=== PATIENT | male | born 1975 | race Caucasian/White ===

== ENCOUNTER 2016-06-28 09:36 | Emergency (ER) | payer OTHER ==
[~2016-06-28] VITALS: Ht 185.4 cm; Wt 172.4 kg
[~2016-06-28 09:36] MED LIST: CLINDAMYCIN HC150 MG PO; FLEXERIL10 MG PO; KEFLEX 500MG.500 MG PO; LORTAB 5/500 501 TAB PO; NOMEDS *
[2016-06-28] MEDS ORDERED: LISINOPRIL 20MG20 MG PO (09:48)
--- NOTE | 2016-06-28 09:53 | Emergency Room Report ---
History of Present Illness Time Seen by [id number] Presenting Problem in Triage Pt arrived:Walked Presenting Problem:PAIN IN THORACIC SPINE, UNKNOWN REASON. STARTED HURTING YESTERDAY AND HAS NOT DONE ANYTHING TO CAUSE IT, NO TRAUMA. NO NAUSEA, NO URINARY SYMPTOM Onset of symptoms date/time:/ or onset unknown for:MEDICAL HX UNKNOWN Treatment Prior to Arrival: bobby at 1999 last pm [employer] Provided by:SELF Sepsis Risk Assessment: Temp: 97.8 B/P: 128/68 MAP: 88 Pulse: 79 Resp: 18 Recent fever? N Clinical Suspician of Infection? N Mental Status: 1 - Regular (Normal Baseline) Sepsis Risk:Low Sepsis Risk Have you (or family members/close friends) recently traveled outside the [place]? N If Yes, where/when: Have you had exposure to infectious disease within the past month? N TB? Other? Specify: Comment The patient complains of low back pain for about 24 hours. 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 He complains of pain in his mid to upper midline lumbar spine area. No radiation, numbness, weakness, or bowel or bladder symptoms. He has had previous episodes where his back "goes out" like this, the last he remembers was 2010. No specific diagnoses. He took Aleve yesterday evening. He says it did not help. Pain is worse with movement and in the standing position. ALLERGIES Coded Allergies: No Known Drug Allergies (NKDA) (06/28/16) Home Medications Reported Medications LISINOPRIL (Lisinopril) 20 MG PO DAILY History Medical History General Angina: No NE: No Hypertension? Yes Hyperlipidemia? No CHF? No COPD? No Asthma? No CVA? No Seizures? No Diabetes? No GB Disease: No MRSA? No TB? No Cancer? No Immunization Hx Ped.Immunizations UTD No DT/Tetanus 08/29/09 Flu 2YRSorMore Pneumonia NEVER Surgical Hx Previous Surgery?Y Ear tubes Tonsils RIGHT ARM Social History Smoking Hx Smoker: Never Smoker Tobacco: No Alcohol Alcohol: Yes Additionial History Additional History Lumbar spine x-ray 2002 result reviewed, negative Review of Systems All Other Systems Reviewed and Negative Constitutional denies fever Gastrointestinal denies abdominal pain, denies vomiting Musculoskeletal back pain Psychiatric/Neurological denies numbness, denies weakness Physical Exam Vital Signs Vital Signs Date Time Temp Pulse Resp B/P Pulse O2 O2 Flow FiO2 Ox Delivery Rate 06/28 1010 77 20 122/74 98 06/28 1008 20 06/28 0943 97.8 79 18 128/68 97 06/28 0941 97.8 79 18 128/68 97 General Appearance high BMI, moves slowly when changing positions, pain with movement Respiratory Status No: respiratory distress. Cardiovascular normal peripheral pulses Gastrointestinal non tender, no pulsatile mass Back normal inspection, no CVA tenderness, no vertebral tenderness Neurologic alert, no motor/sensory deficits Medical Decision Making LABS/Meds/Orders Pt receiving controlled substance in ED? Yes Alverto was queried for this patient? No Reason not queried - unable to access Results/Orders Current Medication Orders Sig/Tarun Start time Last Medication Dose Route Stop Time Status Admin Oxycodone/ 0 .STK-MED ONE 06/28 1004 DC Acetaminophen PO Ibuprofen 0 .STK-MED ONE 06/28 1003 DC PO Ibuprofen 800 MG ONCE ONE 06/28 1000 DC 06/28 PO 06/28 1001 1008 Oxycodone/ 1 EACH ONCE ONE 06/28 1000 DC 06/28 Acetaminophen PO 06/28 1001 1008 Orders Procedure Date/time Status LUMBAR SPINE-2 TO 3 VIEWS 06/28 1001 Active XRAY/CT/US XRAY/CT/US XRAY L-spine Comment Interpreted by Carmelo Lozano MD. Negative for fracture, dislocation, or subluxation. Departure Departure Disposition DC Home or Self Care(routine) Clinical Impression Primary Impression: Low back pain Qualifiers: Chronicity: acute Back pain laterality: midline Sciatica presence: without sciatica Qualified Code: M54.5 - Low back pain Condition STABLE Additional Instructions Off work until Wednesday07/01/16. Additional instructions for BACK PAIN: See your physician as soon as possible for further evaluation. Return immediately if back pain becomes intolerable, or if fever, numbness or weakness of your legs, loss of control of your bowels or bladder. Discharge Counseling Counseled pt/family regarding diagnosis, test results, medications/RX, home care, follow up needs Prescriptions Current Visit Scripts OXYCODONE HCL/ACETAMINOPHEN (Percocet 5-325 MG Tablet) 1 TAB PO Q6HP PRN pain #10 TAB Ibuprofen (Ibuprofen 800MG) 800 MG PO Q8HP PRN pain #15 TAB ED Critical Care Critical Care No
--- OUTSIDE RECORDS SUMMARY | 2016-06-28 10:06 | External Medical Summary Rpt ---
Author Author , Organization [employer] Address Unknown Phone Unavailable Purpose Continuity of Care Document - through 2016
--- OUTSIDE RECORDS SUMMARY | 2016-06-28 10:07 | External Medical Summary Rpt ---
Author Author KEVEN Shen, KEVEN Shen Organization [employer] Address Unknown Phone Unavailable
--- OUTSIDE RECORDS SUMMARY | 2016-06-28 10:07 | External Medical Summary Rpt ---
Demographics Preferred Language Liberian Marital Status Unknown Jain Affiliation Unknown Race Unknown Ethnic Group Unknown Author Author , Organization [employer] Address Unknown Phone Unavailable Purpose Continuity of Care Document - through 2016 Immunization No patient found.
--- OUTSIDE RECORDS SUMMARY | 2016-06-28 10:07 | External Medical Summary Rpt ---
Demographics Preferred Language Martiniquais Marital Status Unknown Presybeterian Affiliation Unknown Race Unknown Ethnic Group Unknown Author Author , Organization [employer] Address Unknown Phone Unavailable Purpose Continuity of Care Document - through 2016 Immunization No patient found.
[2016-06-28] MEDS ORDERED: IBUPROFEN800 MG PO (10:37)
[2016-06-28] MEDS ORDERED: PERCOCET1 TAB PO (10:37)
[2016-06-28 10:47] VITALS: BP 138/77
--- NOTE | 2016-06-28 13:59 | RADIOLOGY REPORT PS360 ---
LUMBAR SPINE-2 TO 3 VIEWS COMPARISON: None HISTORY: Back pain TECHNIQUE: AP and lateral views and spot view lumbosacral junction FINDINGS: There is normal curvature and alignment. All lumbar vertebrae appear intact and disc spaces are well maintained throughout. The SI joints appear normal. IMPRESSION: Negative lumbar spine
== END 2016-06-28 10:45 | disposition home or self-care (01) ==
LOC: ER 09:36
DX: M54.5 Low back pain (principal); I10 Essential (primary) hypertension

== ENCOUNTER → 2016-07-01 | Outpatient (CLI) | payer OTHER ==
[~2016-07-01] MED LIST changes: +IBUPROFEN800 MG PO; +LISINOPRIL 20MG20 MG PO; +PERCOCET1 TAB PO
--- NOTE | 2016-07-01 12:11 | RADIOLOGY REPORT PS360 ---
KNEE-3 VIEWS-LT HISTORY: LEFT KNEE PAIN ORDERING PHYSICIAN: GIO ARIAS APRN PATIENT AGE: 40 years COMPARISON: None FINDINGS: There are mild osteoarthritic changes of the medial compartment and patellofemoral joint. No fracture or dislocation. No lytic or blastic change. 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
== END ==
LOC: RAD 09:39
DX: M25.562 Pain in left knee (principal)